=== PATIENT | male | born 1970 | race Caucasian/White ===

== ENCOUNTER 2017-01-12 16:21 | Inpatient (IN) | payer BC, OTHER ==
[~2017-01-12] VITALS: Ht 177.8 cm; Wt 107.5 kg
[2017-01-12 16:57] LABS: Basophils # (auto) 0.1 uL; Basophils % (auto) 0.8 % (0.0-2.0); Eosinophils # (auto) 0.2 uL; Eosinophils % (auto) 2.1 % (0.0-7.0); Hematocrit 48.3 % (41.0-53.0); Hemoglobin 16.7 g/dL (13.5-17.5); Lymphocytes % (auto) 23.7 % (10.0-50.0); Mean Corpuscular Hemoglobin 30.4 pg (28.0-32.0); Mean Corpuscular Hgb Conc. 34.5 g/dL (32.0-36.0); Mean Platelet Volume 7.3 fL (6.9-10.8); Monocytes # (auto) 0.6 uL; Monocytes % (auto) 7.2 % (0.0-12.0); Neutrophils # (auto) 5.7 uL; Neutrophils % (auto) 66.2 % (37.0-80.0); Nucleated Red Blood Cells % 0.1 %; Platelet Count (auto) 292 10^3/uL (140-450); Red Cell Distribution Width 14.3 % (11.8-14.3); White Blood Cell 8.5 10^3/uL (4.4-10.8)
[2017-01-12 17:12] LABS: Alkaline Phosphatase 71 U/L (45-117); Anion Gap 5 (5-15); Aspartate Aminotransferase 17 U/L (15-37); BUN/Creatinine Ratio 11.6; Bilirubin, Total 0.4 mg/dL (0.2-1.0); Blood Urea Nitrogen 14 mg/dL (7-18); Calcium 9.2 mg/dL (8.5-10.1); Carbon Dioxide 27 mmol/L (21-32); Chloride 106 mmol/L (98-107); GFR African American 83 mL/min; GFR Non-African American 69 mL/min; Glucose 96 mg/dL (74-106); Potassium 4.5 mmol/L (3.5-5.1); Sodium 138 mmol/L (136-145); Total Protein 7.3 g/dL (6.4-8.2)
[2017-01-12] MEDS ORDERED: SODIUM CHLORIDE 0.9% 1,000 ML IV ONE (17:42)
[2017-01-12] MEDS ORDERED: ASPirin 81 mg TAB PO ONE (17:45)
[2017-01-12 18:20] LABS: INR 1.05 (0.9-1.15); Partial Thromboplastin Time 27.5 sec (22.64-33.71); Prothrombin Time 11.4 sec (9.37-12.3)
[2017-01-12] MEDS ORDERED: HYDROcodone-ACET 5/325MG TAB PO PRN (18:30)
[2017-01-12] MEDS ORDERED: MORPHINE SULF INJ 2 MG/ML SYRINGE 1ML IV PRN ×2 (18:30)
[2017-01-12] MEDS ORDERED: LORazepam 0.5 MG TAB PO PRN (18:30)
[2017-01-12] MEDS ORDERED: ACETAMINOPHEN 500 MG TAB PO PRN (18:30)
[2017-01-12] MEDS ORDERED: NITROGLYCERIN 0.4 MG SL TAB SL PRN (18:30)
[2017-01-12] MEDS ORDERED: PROMETHAZINE HCL 25 MG/ML 1ML IV PRN (18:30)
[2017-01-12] MEDS ORDERED: LACTULOSE 20Gm/30ML SOLN PO PRN (18:30)
[2017-01-12] MEDS ORDERED: TEMAZEPAM 15 MG CAP PO PRN (18:30)
[2017-01-12] MEDS: SODIUM CHLORIDE 0.9% 1,000 ML IV SCH (19:02)
[2017-01-12 20:00] VITALS: BP 133/84
[2017-01-12] MEDS ORDERED: ATORVASTATIN 20 MG TAB PO SCH (22:00)
[2017-01-12] MEDS ORDERED: METOPROLOL TARTRATE 25 MG TAB PO SCH (22:00)
[2017-01-12 22:21] VITALS: BP 133/84
[2017-01-13 05:19] VITALS: BP 100/57
[2017-01-13 06:48] LABS: Cholesterol 158 mg/dL (< 200); HDL Cholesterol 19 mg/dL (40-59); LDL Cholesterol 120 mg/dL (< 100); Triglycerides 166 mg/dL (< 150)
[2017-01-13 07:30] VITALS: BP 100/57
[2017-01-13 09:00] VITALS: BP 109/65
[2017-01-13] MEDS ORDERED: NITROGLYCERIN 0.2MG/HR TOPICAL PATCH TD SCH (10:00)
[2017-01-13] MEDS ORDERED: ASPirin 81 mg TAB PO SCH (10:00)
[2017-01-13] MEDS: SODIUM CHLORIDE 0.9% 1,000 ML IV SCH (10:21)
[2017-01-13 13:00] VITALS: BP 119/73
[2017-01-13 14:08] VITALS: BP 100/57
== END 2017-01-13 15:45 | disposition home or self-care (01) | DRG 313 ==
LOC: ER 16:21 → TELE 16:22 → TELE-WESTW 19:35
PROVIDERS: ADMIT Internal Medicine; ATTEND Internal Medicine
DX: R07.89 Other chest pain (principal); E66.9 Obesity, unspecified; F17.210 Nicotine dependence, cigarettes, uncomplicated; Z83.3 Family history of diabetes mellitus; Z68.34 Body mass index [BMI] 34.0-34.9, adult; Z82.49 Family history of ischemic heart disease and other diseases of the circulatory system; Z82.5 Family history of asthma and other chronic lower respiratory diseases
CPT/HCPCS: 36415; 71010; 80053; 80061; 82550; 83735; 84443; 84484; 85025; 85379; 85610; 85652; 85730; 86141; 93005; 93017; 94761; 96360